=== PATIENT | male | born 1995 | race Caucasian/White ===

== ENCOUNTER 2017-05-03 21:33 | Emergency (ER) | payer OTHER ==
[~2017-05-03] VITALS: Ht 175.3 cm; Wt 106.1 kg
--- NOTE | 2017-05-03 21:36 | ER Report ---
History and Physical Time Seen By MD: 21:34 HPI/ROS CHIEF COMPLAINT: Headache, fever, body aches HISTORY OF PRESENT ILLNESS: 22-year-old male presents ambulatory to the ER after being ill for 2 days. He's having fevers, body aches, stiff neck and a headache. Patient notes he recently purchased a new pillows been sleeping differently. He is moderate his neck stiffness is due to that. Patient denies photophobia or meningismus. Patient has a dry cough and some clear rhinitis. He's been having body aches tonight. He's been having some chills and subjective fevers. He took ibuprofen throughout the day. Last dose was 4 hours prior to arrival 200 mg. Patient notes no nausea or vomiting. Patient denies dysuria. Patient denies skin rashes or swollen joints. Patient further denies exposure to ill contacts. REVIEW OF SYSTEMS: Respiratory: No cough, no dyspnea. Cardiovascular: No chest pain, no palpitations. Gastrointestinal: No vomiting, no abdominal pain. Musculoskeletal: As above Allergies: Coded Allergies: No Known Drug Allergies (Unverified , 05/03/17) Home Meds No Active Prescriptions or Reported Meds Past Medical/Surgical History Unremarkable Reviewed Nurses Notes: Yes Old Medical Records Reviewed: Yes Constitutional Vital Sign - Last 24 Hours 05/03/17 05/03/17 05/03/17 05/03/17 21:37 21:40 21:48 21:51 Temp 99.6 Pulse 109 107 Resp 18 B/P (MAP) 132/79 132/79 (96) 134/90 (105) Pulse Ox 96 94 O2 Delivery Room Air 05/03/17 05/03/17 05/03/17 05/03/17 22:00 22:03 22:18 22:30 Pulse 106 105 B/P (MAP) 125/70 (88) 122/54 (76) Pulse Ox 95 96 05/03/17 05/03/17 22:33 22:38 Pulse 107 105 Pulse Ox 96 98 Physical Exam General Appearance: The patient is alert, has no immediate need for airway protection and no current signs of toxicity. Vital signs stable, low-grade fever 99 5 HEENT: Pupils equal and round no injection. TMs normal, oropharynx with mild redness, no exudate Respiratory: Chest is non tender, lungs are clear to auscultation. No wheezing or rails Cardiac: regular rate and rhythm, no murmur Gastrointestinal: Abdomen is soft and non tender, no masses, bowel sounds normal. No CVA tenderness Musculoskeletal: Neck: Neck is supple and non tender. No meningismus, no lymphadenitis Extremities have full range of motion and are non tender. Skin: No rashes or lesions. DIFFERENTIAL DIAGNOSIS: After history and physical exam differential diagnosis was considered for adult fever including but not limited to viral syndromes including influenza, urinary tract infection, pneumonia and sepsis. Medical Decision Making Data Points Laboratory Hematology Test 05/03/17 21:50 Influenza Virus Type A (PCR) Negative (NEGATIVE) Influenza Virus Type B (PCR) Negative (NEGATIVE) Chemistry Test 05/03/17 21:50 Influenza Virus Type A (PCR) Negative (NEGATIVE) Influenza Virus Type B (PCR) Negative (NEGATIVE) ED Course/Re-evaluation ED Course Patient was minute to an examination room. H&P was done. The differential diagnoses was considered. On conical examination, patient appears clinically to have viral syndrome or influenza. A rapid influenza is performed. She has no photophobia or stiff neck. He was concerned and neck to come in by his girlfriend and his mom since he's having neck pain and a headache. At that he might have meningitis. Clinically he has no meningismus. I explained him the only way to correctly diagnosis meningitis was to perform a spinal tap. I do not think he still enough to recommend this procedure at this time. Patient's rapid influenza was unremarkable. He was advised to conservative treatment plan of alternating ibuprofen and Tylenol for symptom management. He is advised to follow-up with primary care if unimproved in 3-5 days. Decision to Disposition Date: May 03, 2017 Decision to Disposition Time: 22:44 Depart Departure Latest Vital Signs Vital Signs Date Time Temp Pulse Resp B/P (MAP) Pulse Ox O2 Delivery O2 Flow Rate FiO2 05/03/17 22:38 105 98 05/03/17 22:30 122/54 (76) 05/03/17 21:37 99.6 18 Room Air Impression: Primary Impression: Viral syndrome Additional Impressions: Headache Fever Condition: Improved Disposition: HOME OR SELF-CARE Referrals: REENA AHUMADA MD, FARRUKH MD New Scripts No Active Prescriptions or Reported Meds Patient Instructions: Viral Syndrome (ED) Additional Instructions: Take ibuprofen 200 mg 3-4 tablets 3 times a day with food Take Tylenol 650 mg in between Drink plenty of fluids Follow-up with primary care if unimproved in 2-3 days. Problem Qualifiers Additional Impressions: Headache Headache type: unspecified Headache chronicity pattern: acute headache Intractability: not intractable Qualified Codes: R51 - Headache Fever Fever type: unspecified Qualified Codes: R50.9 - Fever, unspecified MARITZA DIXON DO May 03, 2017 21:36
[2017-05-03 22:30] VITALS: BP 122/54
== END 2017-05-03 22:54 | disposition home or self-care (01) ==
LOC: ER 21:54
DX: B34.9 Viral infection, unspecified (principal)
CPT/HCPCS: 87502; 99282